=== PATIENT | female | born 1940 | race African-American/Black ===

== ENCOUNTER 2023-04-21 00:42 | Emergency (ER) | payer OTHER, MEDICAID ==
[~2023-04-21] VITALS: Ht 162.6 cm; Wt 41.0 kg
[2023-04-21 00:51] VITALS: O2SAT 100
[2023-04-21] MEDS ORDERED: SODIUM CHLORIDE 0.9% 1,000 ML IV ONE (01:00)
[2023-04-21 02:12] LABS: BASOPHILS % 0.5 % (0.0-2.0); EOSINOPHILS % 0.3 % (0.0-5.0); HEMATOCRIT. 39.5 % (36.0-48.0); HEMOGLOBIN. 13.3 g/dL (12.0-16.0); LYMPHOCYTES % 13.8 % (20.0-50.0); MEAN CORPUSCULAR HEMOGLOBIN 28.7 pg (28.0-32.0); MEAN CORPUSCULAR HGB CONC 33.7 g/dL (31.0-37.0); MEAN CORPUSCULAR VOLUME 85.2 fL (81.0-99.0); MEAN PLATELET VOLUME 7.6 fl (7.4-10.4); MONOCYTES % 4.1 % (2.0-8.0); NEUTROPHILS % 81.3 % (40.0-76.0); PLATELET 278 x1000/uL (130-400); RED BLOOD CELL COUNT 4.64 mill/uL (4.2-5.4); RED CELL DISTRIBUTION WIDTH 13.8 % (11.6-14.6); WHITE BLOOD COUNT 11.8 x1000/uL (4.5-11.0)
[2023-04-21 02:22] LABS: PROTHROMBIN TIME 10.6 sec (9.6-11.0)
[2023-04-21 02:31] LABS: ALANINE AMINOTRANSFERASE 54 IU/L (10-49); ALBUMIN 4.4 g/dL (3.2-4.8); ASPARTATE AMINOTRANSFERASE 33 IU/L (<34); BILIRUBIN TOTAL 1.8 mg/dL (0.1-1.0); CALCIUM 9.9 mg/dL (8.7-10.4); CARBON DIOXIDE 25 mEq/L (21-32); CHLORIDE 96 mEq/L (98-107); GLUCOSE 385 mg/dL (70-105); POTASSIUM 3.5 mEq/L (3.5-5.1); PROTEIN TOTAL 7.1 g/dL (6.0-8.3); SODIUM 131 mEq/L (136-145); TROPONIN I HIGH SENSITIVITY 19 ng/L (3.0-34); UREA NITROGEN BLOOD 18 mg/dL (9-23)
[2023-04-21 02:42] LABS: LACTIC ACID 4.5 mmol/L (0.4-2.0)
[2023-04-21 02:45] VITALS: BP 128/69; PULSE 69; RESP 19; TEMP 97.9
[2023-04-21 03:48] LABS: TROPONIN I HIGH SENSITIVITY 18 ng/L (3.0-34)
[2023-04-21] MEDS ORDERED: SODIUM CHLORIDE 0.9% 1,000 ML IV NR (04:00)
[2023-04-21] MEDS ORDERED: VANCOMYCIN 1G PREMIX 200 ML IV SCH (04:00)
[2023-04-21] MEDS ORDERED: PIPERACILLIN/TAZOBACTAM 3.375GM/50ML PREMIX IV NR (04:00)
[2023-04-21 06:46] LABS: CLARITY URINE CLOUDY (CLEAR); COLOR URINE YELLOW (YELLOW)
[2023-04-21 06:47] LABS: GLUCOSE URINE 3+ (NEGATIVE); KETONES URINE NEGATIVE (NEGATIVE); LEUKOCYTE ESTERASE URINE NEGATIVE (NEGATIVE); NITRITE URINE NEGATIVE (NEGATIVE); OCCULT BLOOD URINE TRACE (NEGATIVE); PH URINE 5.5 (4.5-8.0); PROTEIN URINE NEGATIVE (NEGATIVE); SPECIFIC GRAVITY URINE 1.025 (1.005-1.030); UROBILINOGEN URINE 0.2 E.U./dL (0.2-1.0)
[2023-04-21 07:38] LABS: SQUAMOUS EPITHELIAL CELL URINE FEW /lpf (RARE/1+)
[2023-04-21 07:40] LABS: RBC URINE 0-2 /hpf (0-2)
[2023-04-21 07:41] LABS: BACTERIA URINE 3+
== END 2023-04-21 04:53 | disposition left against medical advice (07) ==
LOC: ER 00:42
DX: E11.9 Type 2 diabetes mellitus without complications (principal); F19.90 Other psychoactive substance use, unspecified, uncomplicated; G30.9 Alzheimer's disease, unspecified; I95.9 Hypotension, unspecified; A41.9 Sepsis, unspecified organism; E87.20 Acidosis, unspecified
CPT/HCPCS: 99291; 80053; 81003; 83605; 85025; 85610; 87040; 87086; 87186; 84484; 87077; 36415; 84145; 71045; 93005; J7030

== ENCOUNTER 2023-07-03 03:28 | Emergency (ER) | payer OTHER ==
[~2023-07-03] VITALS: Ht 154.9 cm; Wt 50.0 kg
[2023-07-03 03:30] VITALS: O2SAT 97
[2023-07-03] MEDS ORDERED: SODIUM CHLORIDE 0.9% 1,000 ML IV ONE (03:45)
[2023-07-03] MEDS ORDERED: LABETALOL 5MG/ML SYR 20 MG/4 ML SYRINGE IV ONE (05:30)
[2023-07-03 05:56] LABS: HEMATOCRIT. 35.5 % (36.0-48.0); HEMOGLOBIN. 11.2 g/dL (12.0-16.0); MEAN CORPUSCULAR HEMOGLOBIN 27.6 pg (28.0-32.0); MEAN CORPUSCULAR HGB CONC 31.6 g/dL (31.0-37.0); MEAN CORPUSCULAR VOLUME 87.6 fL (81.0-99.0); MEAN PLATELET VOLUME 7.6 fl (7.4-10.4); PLATELET 237 x1000/uL (130-400); RED BLOOD CELL COUNT 4.06 mill/uL (4.2-5.4); RED CELL DISTRIBUTION WIDTH 14.1 % (11.6-14.6); WHITE BLOOD COUNT 13.4 x1000/uL (4.5-11.0)
[2023-07-03 06:12] LABS: ALANINE AMINOTRANSFERASE 16 IU/L (10-49); ALBUMIN 3.4 g/dL (3.2-4.8); ASPARTATE AMINOTRANSFERASE 18 IU/L (<34); BILIRUBIN TOTAL 1.2 mg/dL (0.1-1.0); CALCIUM 8.7 mg/dL (8.7-10.4); CARBON DIOXIDE 25 mEq/L (21-32); CHLORIDE 106 mEq/L (98-107); CREATININE 0.8 mg/dL (0.6-1.0); GLUCOSE 273 mg/dL (70-105); POTASSIUM 3.9 mEq/L (3.5-5.1); PROTEIN TOTAL 6.4 g/dL (6.0-8.3); SODIUM 138 mEq/L (136-145); TROPONIN I HIGH SENSITIVITY 13 ng/L (3.0-34); UREA NITROGEN BLOOD 11 mg/dL (9-23)
[2023-07-03 06:14] LABS: DIFFERENTIAL COMMENT 1
[2023-07-03] MEDS ORDERED: FENTANYL CITRATE/PF 50MCG/ML 2ML VIAL IV NR (08:45)
[2023-07-03] MEDS ORDERED: PROPOFOL 10MG/ML 100ML 100 ML IV PRN (09:00)
[2023-07-03 10:30] VITALS: BP 121/61; PULSE 85; RESP 14; TEMP 98.3
[2023-07-03 10:34] LABS: TROPONIN I HIGH SENSITIVITY 15 ng/L (3.0-34)
[2023-07-03 10:47] LABS: PLATELET ESTIMATE NORMAL
== END 2023-07-03 10:52 | disposition short-term general hospital (02) ==
LOC: ER 03:28
DX: R55 Syncope and collapse (principal); E11.9 Type 2 diabetes mellitus without complications; Z98.890 Other specified postprocedural states
CPT/HCPCS: 99285; 70450; 96360; 71045; 96361; 80053; 82962; 83605; 85025; 87040; 84484; 72125; 36415; J7030

== ENCOUNTER 2023-09-02 23:10 | Emergency (ER) | payer OTHER ==
[~2023-09-02] VITALS: Ht 157.5 cm; Wt 59.0 kg
[2023-09-02 23:16] VITALS: TEMP 98.6; O2SAT 100
[2023-09-03 04:05] VITALS: BP 158/77; PULSE 80; RESP 18
== END 2023-09-03 04:09 | disposition home or self-care (01) ==
LOC: ER 23:10
DX: S00.03XA Contusion of scalp, initial encounter (principal); S83.92XA Sprain of unspecified site of left knee, initial encounter; I10 Essential (primary) hypertension; E11.9 Type 2 diabetes mellitus without complications
CPT/HCPCS: 71045; 72170; 73552; 73560; 73590; 99284

== ENCOUNTER 2023-11-16 13:42 | Emergency (ER) | payer MEDICAID, OTHER ==
[~2023-11-16] VITALS: Ht 165.1 cm; Wt 60.0 kg
[2023-11-16 13:48] VITALS: O2SAT 98
[2023-11-16 14:28] LABS: BASOPHILS % 0.4 % (0.0-2.0); EOSINOPHILS % 0.9 % (0.0-5.0); HEMATOCRIT. 30.1 % (36.0-48.0); LYMPHOCYTES % 23.9 % (20.0-50.0); MEAN CORPUSCULAR HEMOGLOBIN 28.5 pg (28.0-32.0); MEAN CORPUSCULAR HGB CONC 33.2 g/dL (31.0-37.0); MEAN CORPUSCULAR VOLUME 85.7 fL (81.0-99.0); MEAN PLATELET VOLUME 7.7 fl (7.4-10.4); MONOCYTES % 5.8 % (2.0-8.0); PLATELET 197 x1000/uL (130-400); RED BLOOD CELL COUNT 3.51 mill/uL (4.2-5.4); WHITE BLOOD COUNT 6.2 x1000/uL (4.5-11.0)
[2023-11-16 14:35] LABS: CHLORIDE 108 mEq/L (98-107); POTASSIUM 4.1 mEq/L (3.5-5.1); SODIUM 139 mEq/L (136-145)
[2023-11-16 14:36] LABS: CALCIUM 8.6 mg/dL (8.7-10.4); CARBON DIOXIDE 27 mEq/L (21-32)
[2023-11-16 14:41] LABS: CREATININE 0.9 mg/dL (0.6-1.0); GLUCOSE 249 mg/dL (70-105); UREA NITROGEN BLOOD 19 mg/dL (9-23)
[2023-11-16 14:42] LABS: TROPONIN I HIGH SENSITIVITY 19 ng/L (3.0-34)
[2023-11-16 17:59] LABS: TROPONIN I HIGH SENSITIVITY 24 ng/L (3.0-34)
[2023-11-16 18:12] VITALS: BP 173/75; PULSE 70; RESP 16; TEMP 98.2
== END 2023-11-16 18:33 | disposition short-term general hospital (02) ==
LOC: ER 14:00
DX: R55 Syncope and collapse (principal); F03.90 Unspecified dementia, unspecified severity, without behavioral disturbance, psychotic disturbance, mood disturbance, and anxiety; E11.9 Type 2 diabetes mellitus without complications; I10 Essential (primary) hypertension
CPT/HCPCS: 36415; 80048; 83880; 84484; 85025; 93005; 99285

== ENCOUNTER 2024-03-16 03:00 | Emergency (ER) | payer OTHER ==
[~2024-03-16] VITALS: Ht 165.1 cm; Wt 45.0 kg
[2024-03-16 03:05] VITALS: O2SAT 100
[2024-03-16] MEDS: SODIUM CHLORIDE 0.9% 500 ML IV ONE (03:15)
[2024-03-16 03:57] LABS: BASOPHILS % 0.4 % (0.0-2.0); EOSINOPHILS % 1.4 % (0.0-5.0); HEMATOCRIT. 34.2 % (36.0-48.0); HEMOGLOBIN. 11.5 g/dL (12.0-16.0); MEAN CORPUSCULAR HEMOGLOBIN 29.1 pg (28.0-32.0); MEAN CORPUSCULAR HGB CONC 33.5 g/dL (31.0-37.0); MEAN CORPUSCULAR VOLUME 86.8 fL (81.0-99.0); MEAN PLATELET VOLUME 8.2 fl (7.4-10.4); MONOCYTES % 6.3 % (2.0-8.0); NEUTROPHILS % 48.9 % (40.0-76.0); PLATELET 201 x1000/uL (130-400); RED BLOOD CELL COUNT 3.95 mill/uL (4.2-5.4); RED CELL DISTRIBUTION WIDTH 14.9 % (11.6-14.6); WHITE BLOOD COUNT 5.7 x1000/uL (4.5-11.0)
[2024-03-16 04:02] LABS: CHLORIDE 104 mEq/L (98-107); POTASSIUM 3.8 mEq/L (3.5-5.1); SODIUM 136 mEq/L (136-145)
[2024-03-16 04:03] LABS: CARBON DIOXIDE 26 mEq/L (21-32)
[2024-03-16 04:04] LABS: CALCIUM 9.7 mg/dL (8.7-10.4)
[2024-03-16 04:08] LABS: CREATININE 1.2 mg/dL (0.6-1.0)
[2024-03-16 04:09] LABS: ETHANOL BLOOD < 10 mg/dL (<10); UREA NITROGEN BLOOD 19 mg/dL (9-23)
[2024-03-16 04:11] LABS: TROPONIN I HIGH SENSITIVITY 25 ng/L (3.0-34)
[2024-03-16 04:12] LABS: PARTIAL THROMBOPLASTIN TIME 22.4 sec (23.4-31.0); PROTHROMBIN TIME 10.7 sec (9.6-11.0)
[2024-03-16 04:25] LABS: GLUCOSE 419 mg/dL (70-105)
[2024-03-16] MEDS: INSULIN REGULAR (HUMULIN R) 1000UNITS/10ML VIAL SUBCUT NR (05:15)
[2024-03-16] MEDS ORDERED: GUAIFENESIN 200MG/10ML SUGAR FREE UDC PO PRN (06:45)
[2024-03-16] MEDS ORDERED: CLONIDINE 0.1MG TABLET PO PRN (06:45)
[2024-03-16] MEDS ORDERED: ONDANSETRON HCL 4MG/2ML INJ IV PRN (06:45)
[2024-03-16] MEDS ORDERED: IPRATROPIUM/ALBUTEROL 0.5-3(2.5)MG/3ML NEB NEB PRN (06:45)
[2024-03-16] MEDS ORDERED: MAGNESIUM/ALUMINUM HYDROXIDE/SIMETHICONE 30ML UDC PO PRN (06:45)
[2024-03-16] MEDS ORDERED: DEXTROSE 50% WATER 50ML SYRINGE IV PRN (06:45)
[2024-03-16] MEDS ORDERED: KETOROLAC 15MG/ML VIAL IV PRN (06:45)
[2024-03-16] MEDS ORDERED: ACETAMINOPHEN 325MG TABLET PO PRN ×2 (06:45)
[2024-03-16] MEDS ORDERED: DOCUSATE SODIUM 100MG CAPSULE PO PRN (06:45)
[2024-03-16] MEDS ORDERED: NITROGLYCERIN 0.4MG TABLET SL SL PRN (06:45)
[2024-03-16 07:51] LABS: IRON 63 ug/dL (50-170)
[2024-03-16 07:52] LABS: LDL CHOLESTEROL 46 mg/dL (5-100); TRIGLYCERIDE 77 mg/dL (0-150)
[2024-03-16 07:53] LABS: CHOLESTEROL 145 mg/dL (<200); HDL CHOLESTEROL 75 mg/dL (>65)
[2024-03-16 07:54] LABS: TOTAL IRON BINDING CAPACITY 169 ug/dl (250-425)
[2024-03-16 07:56] LABS: T4 FREE 1.34 ng/dL (0.89-1.76); THYROID STIMULATING HORMONE 1.98 uIU/mL (0.55-4.78)
[2024-03-16 08:12] LABS: VITAMIN B12 SERUM 655 pg/mL (211-911)
[2024-03-16] MEDS: BLOOD SUGAR DIAGNOSTIC STRIP TEST SCH (09:01)
[2024-03-16] MEDS: LACTATED RINGERS 1,000 ML IV SCH (09:21)
[2024-03-16] MEDS: INSULIN LISPRO 100 UNITS/ML SUBCUT SCH ×2 (09:21→10:31)
[2024-03-16] MEDS: ASPIRIN 81MG EC TABLET PO SCH (09:22)
[2024-03-16] MEDS: AMLODIPINE 5MG TABLET PO SCH (09:22)
[2024-03-16] MEDS: FAMOTIDINE 20MG TABLET PO SCH (09:22)
[2024-03-16] MEDS: ENOXAPARIN 30MG/0.3ML SYR SUBCUT SCH (09:22)
[2024-03-16] MEDS: INSULIN GLARGINE 100 UNITS/ML SUBCUT SCH (10:32)
[2024-03-16 15:38] VITALS: BP 135/60; PULSE 63; RESP 14; TEMP 36.61404; O2SAT 99
[2024-03-16] MEDS ORDERED: ZOLPIDEM TARTRATE 5MG TABLET PO PRN (21:00)
[2024-03-17] MEDS ORDERED: AMLODIPINE 10MG TABLET PO SCH (09:00)
== END 2024-03-16 15:36 | disposition left against medical advice (07) ==
LOC: ER 03:07
DX: E11.65 Type 2 diabetes mellitus with hyperglycemia (principal); I10 Essential (primary) hypertension; Z98.890 Other specified postprocedural states; Z00.00 Encounter for general adult medical examination without abnormal findings
CPT/HCPCS: 80061; 80048; 80320; 82607; 82746; 82962; 83036; 83880; 84439; 83540; 83550; 83605; 83690; 83930; 84443; 85025; 85610; 85730; 86850; 86900; 86901; 87040; 84484; 36415; 84145; 71045; 93970; 93005; 96360; 96361; 96372; 99285; J1650; J1815 ×3; J7040; G0480

== ENCOUNTER 2024-05-20 11:16 | Emergency (ER) | payer OTHER, MEDICAID ==
[~2024-05-20] VITALS: Ht 160 cm; Wt 48.0 kg
[2024-05-20 11:18] VITALS: O2SAT 100
[2024-05-20 12:33] LABS: BASOPHILS % 0.3 % (0.0-2.0); EOSINOPHILS % 0.9 % (0.0-5.0); HEMATOCRIT. 37.1 % (36.0-48.0); HEMOGLOBIN. 11.9 g/dL (12.0-16.0); MEAN CORPUSCULAR HEMOGLOBIN 28.6 pg (28.0-32.0); MEAN CORPUSCULAR VOLUME 89.5 fL (81.0-99.0); MEAN PLATELET VOLUME 7.6 fl (7.4-10.4); MONOCYTES % 4.7 % (2.0-8.0); NEUTROPHILS % 73.1 % (40.0-76.0); PLATELET 215 x1000/uL (130-400); RED BLOOD CELL COUNT 4.14 mill/uL (4.2-5.4); RED CELL DISTRIBUTION WIDTH 15.6 % (11.6-14.6); WHITE BLOOD COUNT 7.3 x1000/uL (4.5-11.0)
[2024-05-20 12:39] LABS: CHLORIDE 105 mEq/L (98-107); POTASSIUM 4.2 mEq/L (3.5-5.1); SODIUM 139 mEq/L (136-145)
[2024-05-20 12:40] LABS: CALCIUM 9.7 mg/dL (8.7-10.4); CARBON DIOXIDE 24 mEq/L (21-32)
[2024-05-20 12:45] LABS: CREATININE 1.1 mg/dL (0.6-1.0); GLUCOSE 368 mg/dL (70-105); UREA NITROGEN BLOOD 16 mg/dL (9-23)
[2024-05-20 12:46] LABS: TROPONIN I HIGH SENSITIVITY 25 ng/L (3.0-34)
[2024-05-20 13:49] VITALS: O2SAT 100
[2024-05-20] MEDS: HYDRALAZINE 20MG/ML VIAL IV ONE (15:55)
[2024-05-20 16:26] VITALS: BP 148/62; PULSE 82; RESP 16; TEMP 36.50292
== END 2024-05-20 16:34 | disposition short-term general hospital (02) ==
LOC: ER 11:16
DX: R55 Syncope and collapse (principal); E11.9 Type 2 diabetes mellitus without complications; I10 Essential (primary) hypertension; F03.90 Unspecified dementia, unspecified severity, without behavioral disturbance, psychotic disturbance, mood disturbance, and anxiety; Z98.890 Other specified postprocedural states
CPT/HCPCS: 99285; 96374; 71045; 80048; 83880; 85025; 84484; 36415; 93005; J0360

== ENCOUNTER 2024-08-18 21:52 | Emergency (ER) | payer OTHER, MEDICAID ==
[~2024-08-18] VITALS: Ht 165.1 cm; Wt 64.0 kg
[2024-08-18 22:01] VITALS: TEMP 36.6; O2SAT 99
[2024-08-18 23:49] LABS: CARBON DIOXIDE 29 mEq/L (21-32); CHLORIDE 103 mEq/L (98-107); POTASSIUM 4.5 mEq/L (3.5-5.1); SODIUM 139 mEq/L (136-145)
[2024-08-18 23:50] LABS: CALCIUM 10.3 mg/dL (8.7-10.4)
[2024-08-18 23:54] LABS: GLUCOSE 97 mg/dL (70-105)
[2024-08-18 23:55] LABS: TROPONIN I HIGH SENSITIVITY 19 ng/L (3.0-34); UREA NITROGEN BLOOD 25 mg/dL (9-23)
[2024-08-18 23:56] LABS: ALANINE AMINOTRANSFERASE 28 IU/L (10-49); ASPARTATE AMINOTRANSFERASE 23 IU/L (<34)
[2024-08-18 23:57] LABS: BILIRUBIN TOTAL 1.2 mg/dL (0.1-1.0)
[2024-08-18 23:59] LABS: T4 FREE 1.26 ng/dL (0.89-1.76)
[2024-08-19 00:17] LABS: BASOPHILS % 0.4 % (0.0-2.0); EOSINOPHILS % 0.3 % (0.0-5.0); HEMATOCRIT. 35.3 % (36.0-48.0); HEMOGLOBIN. 11.9 g/dL (12.0-16.0); LYMPHOCYTES % 20.2 % (20.0-50.0); MEAN CORPUSCULAR HEMOGLOBIN 28.6 pg (28.0-32.0); MEAN CORPUSCULAR HGB CONC 33.7 g/dL (31.0-37.0); MEAN CORPUSCULAR VOLUME 84.8 fL (81.0-99.0); MONOCYTES % 5.1 % (2.0-8.0); PLATELET 232 x1000/uL (130-400); RED BLOOD CELL COUNT 4.17 mill/uL (4.2-5.4); RED CELL DISTRIBUTION WIDTH 14.7 % (11.6-14.6); WHITE BLOOD COUNT 7.4 x1000/uL (4.5-11.0)
[2024-08-19 00:25] LABS: CREATININE 1.6 mg/dL (0.6-1.0)
[2024-08-19 02:28] VITALS: BP 122/48; PULSE 63; RESP 13; O2SAT 99
== END 2024-08-19 02:58 | disposition home or self-care (01) ==
LOC: ER 21:52
DX: R53.1 Weakness (principal); E11.9 Type 2 diabetes mellitus without complications; F02.80 Dementia in other diseases classified elsewhere, unspecified severity, without behavioral disturbance, psychotic disturbance, mood disturbance, and anxiety; G30.9 Alzheimer's disease, unspecified; I10 Essential (primary) hypertension
CPT/HCPCS: 36415; 71045; 80053; 83735; 83880; 84439; 84443; 84484; 85025; 99284; 99285

== ENCOUNTER 2024-09-14 05:53 | Emergency (ER) | payer OTHER, MEDICAID ==
[~2024-09-14] VITALS: Ht 162.6 cm; Wt 49.0 kg
[2024-09-14 05:55] VITALS: O2SAT 98
[2024-09-14] MEDS ORDERED: LIDOCAINE HCL/EPINEPHRINE 1%-EPI 1:100,000 10ML VIAL INFIL ONE (06:15)
[2024-09-14 06:18] VITALS: TEMP 36.7
[2024-09-14] MEDS: LIDOCAINE HCL/EPINEPHRINE 1%-EPI 1:100,000 20ML VIAL INFIL NR (06:45)
[2024-09-14] MEDS: TETANUS, DIPHTHERIA, PERTUSSIS VAC/PF 0.5ML (>10YR OLD) IM ONE (06:51)
[2024-09-14 07:01] LABS: CHLORIDE 109 mEq/L (98-107); POTASSIUM 4.9 mEq/L (3.5-5.1); SODIUM 141 mEq/L (136-145)
[2024-09-14 07:02] LABS: CARBON DIOXIDE 22 mEq/L (21-32)
[2024-09-14 07:03] LABS: CALCIUM 9.8 mg/dL (8.7-10.4)
[2024-09-14 07:07] LABS: GLUCOSE 73 mg/dL (70-105); UREA NITROGEN BLOOD 15 mg/dL (9-23)
[2024-09-14 07:09] LABS: ALANINE AMINOTRANSFERASE 38 IU/L (10-49); ALBUMIN 3.8 g/dL (3.2-4.8); ASPARTATE AMINOTRANSFERASE 31 IU/L (<34)
[2024-09-14 07:10] LABS: BILIRUBIN TOTAL 1.3 mg/dL (0.1-1.0); PROTEIN TOTAL 6.7 g/dL (6.0-8.3)
[2024-09-14 07:11] LABS: BASOPHILS % 0.7 % (0.0-2.0); EOSINOPHILS % 1.4 % (0.0-5.0); HEMATOCRIT. 31.1 % (36.0-48.0); HEMOGLOBIN. 10.3 g/dL (12.0-16.0); LYMPHOCYTES % 16.3 % (20.0-50.0); MEAN CORPUSCULAR HEMOGLOBIN 28.7 pg (28.0-32.0); MEAN CORPUSCULAR HGB CONC 33.2 g/dL (31.0-37.0); MEAN CORPUSCULAR VOLUME 86.4 fL (81.0-99.0); MEAN PLATELET VOLUME 7.8 fl (7.4-10.4); NEUTROPHILS % 74.6 % (40.0-76.0); PLATELET 275 x1000/uL (130-400); RED BLOOD CELL COUNT 3.59 mill/uL (4.2-5.4); RED CELL DISTRIBUTION WIDTH 16.1 % (11.6-14.6); WHITE BLOOD COUNT 5.8 x1000/uL (4.5-11.0)
[2024-09-14 07:54] VITALS: BP 165/68; PULSE 76; RESP 18; O2SAT 95
[2024-09-14] MEDS ORDERED: CIPR500T5 MT (08:35)
== END 2024-09-14 09:00 | disposition home or self-care (01) ==
LOC: ER 05:56
DX: S01.312A Laceration without foreign body of left ear, initial encounter (principal); G30.9 Alzheimer's disease, unspecified; E11.9 Type 2 diabetes mellitus without complications; I10 Essential (primary) hypertension; Z79.899 Other long term (current) drug therapy; W18.30XA Fall on same level, unspecified, initial encounter; Y93.89 Activity, other specified; Y92.89 Other specified places as the place of occurrence of the external cause; Y99.8 Other external cause status
CPT/HCPCS: 99285; 70450; 80053; 85025; 36415; 72125; 90715; 12013; 90471; 93005; J2004

== ENCOUNTER 2024-09-23 21:30 | Emergency (ER) | payer OTHER, MEDICAID ==
[~2024-09-23] VITALS: Ht 162.6 cm; Wt 50.0 kg
[~2024-09-23 21:30] MED LIST: CIPR500T5 MT
[2024-09-23 21:44] VITALS: O2SAT 100
[2024-09-23 22:04] VITALS: BP 100/55; PULSE 66; RESP 16; TEMP 36.7; O2SAT 100
== END 2024-09-23 23:00 | disposition home or self-care (01) ==
LOC: ER 21:30
DX: S01.312D Laceration without foreign body of left ear, subsequent encounter (principal); E11.9 Type 2 diabetes mellitus without complications; Z48.02 Encounter for removal of sutures; Z86.59 Personal history of other mental and behavioral disorders; X58.XXXD Exposure to other specified factors, subsequent encounter
CPT/HCPCS: 99281

== ENCOUNTER 2025-03-18 11:31 | Emergency (ER) | payer OTHER, MEDICAID ==
[~2025-03-18] VITALS: Ht 172.7 cm; Wt 68.0 kg
[~2025-03-18 11:31] MED LIST changes: +CIPR-494 MT; -CIPR500T5 MT
[2025-03-18 11:50] VITALS: O2SAT 100
[2025-03-18 12:54] LABS: BASOPHILS % 0.8 % (0.0-2.0); EOSINOPHILS % 2.3 % (0.0-5.0); HEMATOCRIT. 34.0 % (36.0-48.0); HEMOGLOBIN. 10.8 g/dL (12.0-16.0); LYMPHOCYTES % 31.2 % (20.0-50.0); MEAN PLATELET VOLUME 8.4 fl (7.4-10.4); MONOCYTES % 5.0 % (2.0-8.0); NEUTROPHILS % 60.7 % (40.0-76.0); PLATELET 214 x1000/uL (130-400); RED BLOOD CELL COUNT 3.80 mill/uL (4.2-5.4); RED CELL DISTRIBUTION WIDTH 15.3 % (11.6-14.6)
[2025-03-18] MEDS: SODIUM CHLORIDE 0.9% 1,000 ML IV ONE (13:00)
[2025-03-18 13:13] LABS: CREATININE 1.3 mg/dL (0.6-1.0)
[2025-03-18 13:14] LABS: TROPONIN I HIGH SENSITIVITY 25 ng/L (3.0-34); UREA NITROGEN BLOOD 14 mg/dL (9-23)
[2025-03-18 13:15] LABS: ASPARTATE AMINOTRANSFERASE 35 IU/L (<34)
[2025-03-18 13:16] LABS: BILIRUBIN DIRECT 0.3 mg/dL (<=3.0); BILIRUBIN TOTAL 1.5 mg/dL (0.1-1.0); PROTEIN TOTAL 6.7 g/dL (6.0-8.3)
[2025-03-18 16:30] VITALS: BP 150/88; PULSE 72; RESP 14; TEMP 36.8; O2SAT 98
[2025-03-18 16:39] LABS: TROPONIN I HIGH SENSITIVITY 25 ng/L (3.0-34)
== END 2025-03-18 16:31 | disposition short-term general hospital (02) ==
LOC: ER 11:31 → CANBEDREQ 16:13 → ER 16:31
DX: R41.82 Altered mental status, unspecified (principal); E11.65 Type 2 diabetes mellitus with hyperglycemia; E78.5 Hyperlipidemia, unspecified; F03.90 Unspecified dementia, unspecified severity, without behavioral disturbance, psychotic disturbance, mood disturbance, and anxiety; I10 Essential (primary) hypertension; Z79.899 Other long term (current) drug therapy; Z98.890 Other specified postprocedural states
CPT/HCPCS: 99285; 96360; 70450; 71045; 80076; 80048; 82010; 83690; 85025; 84484; 36415; 93005; J7030

== ENCOUNTER 2025-05-04 13:11 | Emergency (ER) | payer OTHER, MEDICAID ==
[~2025-05-04] VITALS: Ht 167.6 cm; Wt 59.0 kg
[2025-05-04 13:13] VITALS: O2SAT 97
[2025-05-04] MEDS: LEVETIRACETAM 500MG PREMIX 100 ML IV ONE ×2 (13:46→13:47)
[2025-05-04 13:59] LABS: BASOPHILS % 0.5 % (0.0-2.0); EOSINOPHILS % 2.0 % (0.0-5.0); HEMATOCRIT. 34.6 % (36.0-48.0); HEMOGLOBIN. 11.3 g/dL (12.0-16.0); LYMPHOCYTES % 27.7 % (20.0-50.0); MEAN PLATELET VOLUME 8.3 fl (7.4-10.4); MONOCYTES % 4.7 % (2.0-8.0); NEUTROPHILS % 65.1 % (40.0-76.0); PLATELET 195 x1000/uL (130-400); RED BLOOD CELL COUNT 4.01 mill/uL (4.2-5.4); RED CELL DISTRIBUTION WIDTH 14.3 % (11.6-14.6)
[2025-05-04 14:14] LABS: CREATININE 1.4 mg/dL (0.6-1.0)
[2025-05-04 14:15] LABS: PROTEIN TOTAL 6.6 g/dL (6.0-8.3); UREA NITROGEN BLOOD 16 mg/dL (9-23)
[2025-05-04 14:16] LABS: ASPARTATE AMINOTRANSFERASE 21 IU/L (<34)
[2025-05-04 14:17] LABS: BILIRUBIN TOTAL 1.2 mg/dL (0.1-1.0)
[2025-05-04] MEDS: INSULIN REGULAR (HUMULIN R) 1000UNITS/10ML VIAL IV ONE (15:11)
[2025-05-04] MEDS ORDERED: DEXTROSE 50% WATER 50ML SYRINGE IV PRN (17:45)
[2025-05-04] MEDS ORDERED: CLONIDINE 0.1MG TABLET PO PRN (17:45)
[2025-05-04] MEDS ORDERED: IPRATROPIUM/ALBUTEROL 0.5-3(2.5)MG/3ML NEB HHN PRN (17:45)
[2025-05-04] MEDS ORDERED: DOCUSATE SODIUM 100MG CAPSULE PO PRN (17:45)
[2025-05-04] MEDS ORDERED: ONDANSETRON HCL 4MG/2ML INJ IV PRN (17:45)
[2025-05-04] MEDS ORDERED: LORAZEPAM 2MG/ML UD SYRINGE IV PRN (17:45)
[2025-05-04] MEDS ORDERED: ACETAMINOPHEN 325MG TABLET PO PRN ×2 (17:45)
[2025-05-04] MEDS ORDERED: SODIUM CHLORIDE 0.9% 1,000 ML IV SCH (18:00)
[2025-05-04] MEDS ORDERED: INSULIN GLARGINE 100 UNITS/ML SUBCUT SCH (18:00)
[2025-05-04] MEDS ORDERED: INSULIN LISPRO 100 UNITS/ML SUBCUT SCH (18:20)
[2025-05-04 18:25] VITALS: BP 138/66; PULSE 55; RESP 16; TEMP 36.9; O2SAT 97
[2025-05-04] MEDS ORDERED: ATORVASTATIN CALCIUM 40MG TABLET PO SCH (21:00)
[2025-05-04] MEDS ORDERED: LEVETIRACETAM 500MG PREMIX 100 ML IV SCH (21:00)
[2025-05-04] MEDS ORDERED: BLOOD SUGAR DIAGNOSTIC STRIP TEST SCH (21:00)
[2025-05-04] MEDS ORDERED: LEVETIRACETAM 500MG in NACL 100ML PREMIX IV SCH (21:00)
[2025-05-05] MEDS ORDERED: AMLODIPINE 5MG TABLET PO SCH (09:00)
[2025-05-05] MEDS ORDERED: FAMOTIDINE 20MG/2ML VIAL IV SCH (09:00)
[2025-05-05] MEDS ORDERED: INSULIN GLARGINE 100 UNITS/ML SUBCUT SCH (10:00)
== END 2025-05-04 19:32 | disposition short-term general hospital (02) ==
LOC: ER 13:11 → CANBEDREQ 19:08 → ER 19:32
DX: E11.9 Type 2 diabetes mellitus without complications (principal); G40.909 Epilepsy, unspecified, not intractable, without status epilepticus; E11.69 Type 2 diabetes mellitus with other specified complication; E78.5 Hyperlipidemia, unspecified; G30.9 Alzheimer's disease, unspecified; I10 Essential (primary) hypertension; N17.9 Acute kidney failure, unspecified; Z79.899 Other long term (current) drug therapy
CPT/HCPCS: 99291; 93970; 96365; 70450; 96375; 80053; 82010; 82962; 83036; 83930; 85025; 36415; 93005; J1953; J1815